=== PATIENT | male | born 1965 | race African-American/Black ===

== ENCOUNTER 2017-04-09 07:06 | Emergency (ER) | payer OTHER ==
[~2017-04-09 07:06] MED LIST: ALBUTEROL17 G1 IH; ALBUTEROL17 GM INH; ANEXSIA 5/325 M1 TA1 PO; DARVOCET-N 1001 TA1 PO; DEPAKOTE PO; DEPAKOTE125 MG; EPINEPHRIN0.3 MG/0.1; EPIPEN0.3 MG/0.1 IM; HYDROCODONE/APA1 T16 PO; KADIAN50 MG PO; LIPITOR20 MG PO; LORTAB 7.5-5001 TAB PO; MS CONTIN15 MG PO; MSIR15 MG PO; PRILOSEC20 MG PO; SINGULAIR PO; VALIUM10 MG PO; ZYLOPRIM PO; ZYLOPRIM100 MG PO; ZYRTEC10 M2 PO; [UNRECOGNIZED DRUG - OTHER] PO
== END 2017-04-09 08:31 | disposition home or self-care (01) ==
LOC: CED 07:06
DX: M54.5 Low back pain (principal); G89.29 Other chronic pain; J45.909 Unspecified asthma, uncomplicated; F17.200 Nicotine dependence, unspecified, uncomplicated; Z98.890 Other specified postprocedural states; Z88.0 Allergy status to penicillin; Z88.1 Allergy status to other antibiotic agents; Z91.040 Latex allergy status
CPT/HCPCS: 36415; 96372; 99283; J1170